=== PATIENT | female | born 1965 | race Caucasian/White ===

== ENCOUNTER → 2017-05-28 | Outpatient (CLI) | payer OTHER ==
--- NOTE | 2017-05-28 11:48 | P.CNPUL ---
History of Present Illness Consult date: 05/28/17 Reason for consult: obstructive sleep apnea History of present illness: 51-year-old female patient coming in for symptoms of excessive hypersomnia and sleepiness. This patient has been fatigued for many years in the same time she has been sleepy. She has been told to snore loudly and at times she has been told to quit breathing. She goes to bed typically at around midnight and she wakes up around 6:00 in the morning. Despite spending 6 hours in bed, she feels that she has slept only 3-4 hours. She wakes up tired and not refreshed. Has chronic excessive daytime hypersomnia and sleepiness. Does not take any naps during the day. She sleeps he was set was jose guadalupe position. She has gained around 10 pounds over the past 1 year. Does not fall asleep while driving. Has never been involved in motor vehicle accidents. No restlessness in lower extremities. No insomnia. She has mild degree of chronic depression for which she has been on Zoloft. Current Millersview score is 9. Review of Systems Full review of system was done and the positive findings were mentioned above in history of present illness. No nightmares, no restlessness in lower extremity, no sleepwalking or sleep talking, no parasomnias. Past Medical History Additional Past Medical History / Comment(s): Hypertension, hyperlipidemia, depression Additional Past Surgical History / Comment(s): eye Surgery Past Psychological History: Depression Smoking Status: Never smoker Past Alcohol Use History: None Reported Past Drug Use History: None Reported - Past Family History Mother Family Medical History: Sleep Apnea/CPAP/BIPAP Medications and Allergies Home Medications and Allergies Comment(s): Hydrochlorothiazide 25 mg by mouth daily, benazepril 40 mg by mouth daily, Lipitor 10 mg by mouth daily, Zoloft 50 mg by mouth daily. Physical Exam Vitals: BP is 137/74, pulse of 66, respiration of 18, temperature of 98.0, saturation 96 % on room air, weight is 184 pounds, height is 64 inches, 16-1/4, BMI 31.3, Millersview scores at 9 Head exam was generally normal. There was no scleral icterus or corneal arcus. Mucous membranes were moist.Neck is supple and the patient has a slight overbite with a Mallampati class IV. No goiter or neck masses.Lungs were clear to auscultation and percussion, and with normal diaphragmatic excursion. No wheezes or rales were noted. Cardiac exam revealed the PMI to be normally situated and sized. The rhythm was regular and no extrasystoles were noted during several minutes of auscultation. The first and second heart sounds were normal and physiologic splitting of the second heart sound was noted. There were no murmurs, rubs, clicks, or gallops.Abdominal exam revealed normal bowel sounds. The abdomen was soft, non-tender, and without masses, organomegaly, or appreciable enlargement of the abdominal aorta.Examination of the extremities revealed easily palpable radial, femoral and pedal pulses. There was no cyanosis , clubbing or edema. Assessment and Plan Plan: Assessment 1 obstructive sleep apnea, clinically suspected. The patient has loud snoring and witnessed apneas and she suffers from chronic hypersomnia and fatigue and sleepiness. Her Millersview score is 9. 2 hypertension 3 hyperlipidemia 4 depression Plan Encourage weight loss. I recommended CPAP she measures. Proceed with a screening polysomnogram looking for obstructive sleep apnea. We'll make further recommendations based on the results of the sleep study.
== END ==
LOC: SLEEP 10:58
PROVIDERS: ATTEND Internal Medicine Critical Care Medicine
DX: G47.10 Hypersomnia, unspecified (principal); R53.83 Other fatigue; E78.5 Hyperlipidemia, unspecified; F32.9 Major depressive disorder, single episode, unspecified; I10 Essential (primary) hypertension; Z79.899 Other long term (current) drug therapy

== ENCOUNTER → 2017-08-20 | Outpatient (CLI) | payer OTHER ==
--- NOTE | 2017-08-20 13:31 | PN ---
PROGRESS NOTE Bonnie is 51 and she is seeing me in follow up to discuss the results of the sleep study. Note that the patient was initially referred to me for excessive fatigue and sleepiness of many years duration. She also reported some loud snoring and she apparently was quitting breathing at night and her Kingston score was at 9. The patient has depression and this is of mild severity and she is on Zoloft and she has also hypertension hyperlipidemia. The sleep study was completed on 07/07/2017. The patient showed a delayed sleep onset and poor sleep efficiency was calculated to be around 57%. She has frequent nocturnal arousals. Her sleep was quite fragmented. In addition, the patient was found to have mild REM specific obstructive sleep apnea with an AHI of 8. No significant periodic limb movements and clinically she does not have any restless legs syndrome. On today's evaluation, the patient is here to discuss the results. She tells me that her sleep quality has been essentially the same. Contrary to the sleep study findings, she is able to initiate sleep without any major difficulties; however, her main problem continues to be frequent nocturnal arousals. She has a stable weight. She has some degree of anxiety without depression and she is on Zoloft. She has poor sleep hygiene and she is napping during the day and she typically takes 1 or 2 naps depending on her level of fatigue and sleepiness. Temperature 97.9, pulse is 66, respirations 16, saturation 97% on room air, BP is 142/88, weight is 184, BMI 31.5 and height is 5 feet 4 inches. GENERAL APPEARANCE: Calm, comfortable. Head is atraumatic, normocephalic. Neck is supple. There is no JVD. There is no goiter or neck masses. LUNGS: Clear to auscultation. Heart sounds regular rate and rhythm. Normal S1, S2. No S3 or S4. No murmurs. Abdomen is soft, nontender. No organomegaly. EXTREMITIES: No edema. No cyanosis or clubbing. NEUROLOGICALLY: Alert and oriented x3. There is no focal neurological deficits. PSYCHIATRIC: active depression, some degree of anxiety. SKIN: Negative for cellulitis, ulceration or wounds. IMPRESSION: 1. Chronic fatigue with some degree of sleepiness, Kingston score of 9. 2. Mild obstructive sleep apnea, AHI of 8.3, REM specific. 3. Poor sleep efficiency at 57%. 4. Abnormality with sleep architecture with overrepresentation of stage III sleep. 5. Mild nocturnal oxygen desaturation secondary to above. 6. Poor sleep hygiene. 7. Chronic depression. 8. Hypertension. 9. Hyperlipidemia. PLAN: 1. Discussed the results. 2. Will need to implement good sleep hygiene. The patient needs to eliminate all naps during the day and try to consolidate her sleep hours mainly at nighttime. She will try to avoid all caffeinated beverages, especially late in the afternoon or in the early evening hours. 3. Exercise late in the afternoon would help. We discussed various other factors related to her sleep hygiene and she is willing to implement all those changes. She will be encouraged to lose weight knowing that some degree of weight loss would help her with her REM specific obstructive sleep apnea. We decided not to proceed with CPAP therapy yet. Continue Zoloft and consider the addition of an anxiolytic too if needed. The patient will see me back in a year's time. The decision for now was not to treat this patient with CPAP therapy. MMBRITTNY / EVERTONN: [id number] /
== END ==
LOC: SLEEP 10:57
PROVIDERS: ATTEND Internal Medicine Critical Care Medicine
DX: G47.33 Obstructive sleep apnea (adult) (pediatric) (principal); R53.82 Chronic fatigue, unspecified; F32.9 Major depressive disorder, single episode, unspecified; I10 Essential (primary) hypertension; E78.5 Hyperlipidemia, unspecified

== ENCOUNTER → 2017-08-23 | Outpatient (CLI) | payer OTHER ==
--- NOTE | 2017-08-26 14:25 | MM ---
Reason for exam: screening (asymptomatic). Last mammogram was performed 3 years and 7 months ago. History: Family history of breast cancer in mother at age 67. Physical Findings: A clinical breast exam by your physician is recommended on an annual basis and results should be correlated with mammographic findings. MG 3D Screening Mammo W/Cad Bilateral CC and MLO view(s) were taken. Prior study comparison: January 13, 2014, bilateral digital screening mammo w/CAD. December 20, 2011, bilateral digital screening mammo w/CAD. There are scattered fibroglandular densities. Finding: There are typically benign regional, linear calcifications in the outer quadrant of the right breast. There is a chronic nodularity in the right breast. There is no discrete abnormality. ASSESSMENT: Benign, BI-RAD 2 RECOMMENDATION: Routine screening mammogram of both breasts in 1 year.
== END ==
LOC: RADMAMWWP 10:11
PROVIDERS: ATTEND Family Medicine
DX: Z12.31 Encounter for screening mammogram for malignant neoplasm of breast (principal)
CPT/HCPCS: 77063; G0202

== ENCOUNTER → 2019-07-08 | Outpatient (CLI) | payer OTHER ==
--- NOTE | 2019-07-09 14:45 | MM ---
Reason for exam: screening (asymptomatic). Last mammogram was performed 1 year and 10 months ago. History: Family history of breast cancer in mother at age 67. Physical Findings: A clinical breast exam by your physician is recommended on an annual basis and results should be correlated with mammographic findings. MG 3D Screening Mammo W/Cad Bilateral CC and MLO view(s) were taken. Prior study comparison: August 23, 2017, bilateral MG 3d screening mammo w/cad. January 13, 2014, bilateral digital screening mammo w/CAD. The breast tissue is heterogeneously dense. This may lower the sensitivity of mammography. No suspicious abnormality. Stable oval left middle depth asymmetry. No significant changes when compared with prior studies. ASSESSMENT: Benign, BI-RAD 2 RECOMMENDATION: Routine screening mammogram of both breasts in 1 year.
== END | disposition home or self-care (01) ==
LOC: RADMAMWWP 08:16
PROVIDERS: ATTEND Family Medicine
DX: Z12.31 Encounter for screening mammogram for malignant neoplasm of breast (principal)
CPT/HCPCS: 77063; 77067

== ENCOUNTER → 2019-10-27 | Outpatient (CLI) | payer OTHER ==
--- NOTE | 2019-10-27 14:01 | XR ---
EXAMINATION TYPE: XR chest 2V DATE OF EXAM: 10/27/2019 COMPARISON: NONE HISTORY: Chest pain. TECHNIQUE: Frontal and lateral views of the chest are obtained. FINDINGS: There is no focal air space opacity, pleural effusion, or pneumothorax seen. The cardiac silhouette size is within normal limits. The osseous structures are intact. IMPRESSION: No acute cardiopulmonary process.
== END | disposition home or self-care (01) ==
LOC: LABWHC1 13:36
PROVIDERS: ATTEND Family Medicine
DX: R07.9 Chest pain, unspecified (principal)
CPT/HCPCS: 71046

== ENCOUNTER 2020-11-25 14:52 | Emergency (ER) | payer OTHER ==
[2020-11-25 15:01] VITALS: TEMP 97.4
[2020-11-25] MEDS ORDERED: SODIUM CHLORIDE 0.9% 1,000 ML IV STA (15:47)
[2020-11-25] MEDS ORDERED: ONDANSETRON 4 MG/2 ML VIAL IVP STA (15:50)
--- NOTE | 2020-11-25 15:51 | ED ---
Dizziness HPI - General Chief Complaint: Dizziness Stated Complaint: Dizzines,Vomiting Time Seen by Provider: 11/25/20 15:37 Source: patient, RN notes reviewed Mode of arrival: wheelchair Limitations: no limitations - History of Present Illness Initial Comments: Patient is a 55-year-old female that presents to emergency department complaining of dizziness with nausea and vomiting. She only drinks 24 ounces water per day. She noted that for the last 2 half hour she became nauseous and lightheaded and dizzy. She denied any trauma or injury. She denied any history of vertigo bleeding or any other intracranial issues. She denied any pain. She was in no apparent discomfort while sitting in bed during exam and interview. She denied any chest pain shortness of breath headache diarrhea constipation fever fatigue chills weakness. - Related Data Home Medications Medication Instructions Recorded Confirmed Atorvastatin Calcium [Lipitor] 20 mg PO DAILY 11/25/20 11/25/20 Benazepril HCl 40 mg PO DAILY 11/25/20 11/25/20 Meloxicam 15 mg PO DAILY PRN 11/25/20 11/25/20 hydroCHLOROthiazide 25 mg PO DAILY 11/25/20 11/25/20 Previous Rx's Medication Instructions Recorded Scopolamine [Scopolamine 1 MG/72 1 patch TRANSDERM Q72H 9 Days #3 11/25/20 HR patch] patch Allergies Allergy/AdvReac Type Severity Reaction Status Date / Time No Known Allergies Allergy Verified 11/25/20 17:06 Review of Systems ROS Statement: Those systems with pertinent positive or pertinent negative responses have been documented in the HPI. ROS Other: All systems not noted in ROS Statement are negative. Past Medical History Past Medical History: Hyperlipidemia, Hypertension Additional Past Medical History / Comment(s): depression History of Any Multi-Drug Resistant Organisms: None Reported Additional Past Surgical History / Comment(s): eye Surgery Past Psychological History: Depression Smoking Status: Never smoker Past Alcohol Use History: None Reported Past Drug Use History: None Reported - Past Family History Mother Family Medical History: Sleep Apnea/CPAP/BIPAP General Exam Limitations: no limitations General appearance: alert, in no apparent distress, obese Head exam: Present: atraumatic, normocephalic, normal inspection Eye exam: Present: normal appearance, PERRL, EOMI. Absent: scleral icterus, conjunctival injection, periorbital swelling ENT exam: Present: normal exam, mucous membranes moist Neck exam: Present: normal inspection. Absent: tenderness, meningismus, lymphadenopathy Respiratory exam: Present: normal lung sounds bilaterally. Absent: respiratory distress, wheezes, rales, rhonchi, stridor Cardiovascular Exam: Present: regular rate, normal rhythm, normal heart sounds. Absent: systolic murmur, diastolic murmur, rubs, gallop, clicks GI/Abdominal exam: Present: soft, normal bowel sounds. Absent: distended, tenderness, guarding, rebound, rigid Extremities exam: Present: normal inspection, full ROM, normal capillary refill. Absent: tenderness, pedal edema, joint swelling, calf tenderness Neurological exam: Present: alert, oriented X3, CN II-XII intact Expanded Patient oriented to: Present: person, place, time Speech: Present: fluid speech Cranial nerves: EOM's Intact: Normal, Gag Reflex: Normal, Facial Sensation: Normal Cerebellar function: Finger to Nose: Normal, Heel to Miller: Normal Upper motor neuron: Babinski Sign: Normal Sensory exam: Upper Extremity Light Touch: Normal, Lower Extremity Light Touch: Normal Motor strength exam: RUE: 5, LUE: 5, RLE: 5, LLE: 5 Eye Response: (4) open spontaneously Motor Response: (6) obeys commands Verbal Response: (5) oriented Psychiatric exam: Present: normal affect, normal mood Skin exam: Present: warm, dry, intact, normal color. Absent: rash Course Vital Signs 11/25/20 14:58 Temperature 97.4 F L Pulse Rate 77 Respiratory 20 Rate Blood Pressure 146/84 O2 Sat by Pulse 100 Oximetry - Reevaluation(s) Reevaluation #1: 11/25/20 17:39 Patient stated that she was feeling much better the dizziness had subsided to a tolerable level. She was able to get a walk around the room with no issues. Stated that she felt like she was getting up to go home. EKG Findings - EKG Comments: EKG Findings:: Ventricular rate 70 bpm, NY interval 170 ms, QRS duration 80, Q T/QTc 4 and 14/1 for sinusitis, PareT axes 52/73/63. Normal sinus rhythm, normal ECG. Medical Decision Making - Medical Decision Making 55-year-old female complains dizziness nausea vomiting. Labs, 1 L normal saline, EKG, chest x-ray, Zofran ordered. Labs unremarkable, chest unremarkable, CT of head unremarkable Patient still nauseous, 10 mg of Reglan ordered. Case discussed with Dr. Beltrán, it was decided the patient could discharge home w [facility] follow-up to primary care - Lab Data Result diagrams: 11/25/20 15:51 11/25/20 15:51 Lab Results 11/25/20 11/25/20 Range/Units 15:51 15:51 WBC 16.4 H (3.8-10.6) k/uL RBC 4.98 (3.80-5.40) m/uL Hgb 15.0 (11.4-16.0) gm/dL Hct 42.7 (34.0-46.0) % MCV 85.7 (80.0-100.0) fL MCH 30.1 (25.0-35.0) pg MCHC 35.2 (31.0-37.0) g/dL RDW 13.1 (11.5-15.5) % Plt Count 292 (150-450) k/uL MPV 7.3 Neutrophils % 83 % Lymphocytes % 12 % Monocytes % 3 % Eosinophils % 1 % Basophils % 0 % Neutrophils # 13.6 H (1.3-7.7) k/uL Lymphocytes # 2.0 (1.0-4.8) k/uL Monocytes # 0.5 (0-1.0) k/uL Eosinophils # 0.2 (0-0.7) k/uL Basophils # 0.0 (0-0.2) k/uL Sodium 139 (137-145) mmol/L Potassium 4.3 (3.5-5.1) mmol/L Chloride 104 (98-107) mmol/L Carbon Dioxide 25 (22-30) mmol/L Anion Gap 10 mmol/L BUN 20 H (7-17) mg/dL Creatinine 0.90 (0.52-1.04) mg/dL Est GFR (CKD-EPI)AfAm 83 (>60 ml/min/1.73 sqM) Est GFR (CKD-EPI)NonAf 72 (>60 ml/min/1.73 sqM) Glucose 132 H (74-99) mg/dL Calcium 10.5 H (8.4-10.2) mg/dL - EKG Data -: EKG Interpreted by Me EKG shows normal: sinus rhythm Rate: normal EKG Comments: Ventricular rate 70 bpm, NY interval 170 ms, QRS duration 80, QT/QTc 4 and 14/1 for sinusitis, PareT axes 52/73/63. Normal sinus rhythm, normal ECG. - Radiology Data Radiology results: report reviewed, image reviewed Negative unenhanced head computed tomography scan. Chest x-ray: No acute process. Disposition Clinical Impression: Vertigo, Dehydration, Nausea & vomiting Disposition: HOME SELF-CARE Condition: Stable Instructions (If sedation given, give patient instructions): Dizziness (ED) Additional Instructions: Please return to the Emergency Department if symptoms worsen or any other concerns. Use scopolamine patches as prescribed. Follow-up with primary care 1-2 days. Increase oral fluid intake to at least 90-100 ounces per day to ensure optimal hydration Prescriptions: Scopolamine [Scopolamine 1 MG/72 HR patch] 1 patch TRANSDERM Q72H 9 Days #3 patch Is patient prescribed a controlled substance at d/c from ED?: No Referrals: Opal Oswald MD [Primary Care Provider] - 1-2 days Time of Disposition: 17:43
[2020-11-25 16:05] LABS: Basophils % (A) 0 %; Eosinophils # (A) 0.2 k/uL (0-0.7); Eosinophils % (A) 1 %; HCT 42.7 % (34.0-46.0); Lymphocytes % (A) 12 %; MCH 30.1 pg (25.0-35.0); MCHC 35.2 g/dL (31.0-37.0); MCV 85.7 fL (80.0-100.0); Mean Platelet Volume 7.3; Monocytes # (A) 0.5 k/uL (0-1.0); Monocytes % (A) 3 %; Neutrophils # (A) 13.6 k/uL (1.3-7.7); Neutrophils % (A) 83 %; Platelet Count 292 k/uL (150-450); RBC 4.98 m/uL (3.80-5.40); RDW 13.1 % (11.5-15.5); WBC 16.4 k/uL (3.8-10.6)
[2020-11-25 16:17] LABS: Calcium 10.5 mg/dL (8.4-10.2); Potassium 4.3 mmol/L (3.5-5.1)
--- NOTE | 2020-11-25 16:24 | XR ---
EXAMINATION TYPE: XR chest 1V portable DATE OF EXAM: 11/25/2020 COMPARISON: Prior chest x-ray October 27, 2019. HISTORY: Dizziness for 2 to 4 hours with weakness. TECHNIQUE: Single AP portable frontal upright view of the chest is obtained. FINDINGS: Diminished inspiration on current study. Slightly elevated right hemidiaphragm. There is mi ld chronic parenchymal change without suspicious focal air space opacity, pleural effusion, or pneumo thorax seen. The cardiac silhouette size remains within normal limits. The osseous structures are intact. IMPRESSION: No acute process.
[2020-11-25] MEDS ORDERED: METOCLOPRAMIDE 5 MG/ML 2 ML VIAL IVP STA (17:07)
--- NOTE | 2020-11-25 17:09 | CT ---
EXAMINATION TYPE: CT brain wo con DATE OF EXAM: 11/25/2020 COMPARISON: None HISTORY: dizziness CT DLP: 1098.4 mGycm Automated exposure control for dose reduction was used. Images obtained of the brain without contrast. Ventricles have normal size. There is no mass effect nor midline shift. There is no sign of intracran ial hemorrhage. The calvarium is intact. There is no evidence of cerebral edema. IMPRESSION: Negative unenhanced head CT scan.
[2020-11-25 17:43] LABS: Appearance,Urine Cloudy (Clear); Bacteria,Urine Rare /hpf; Bilirubin,Urine Negative (Negative); Blood,Urine Small (Negative); Color,Urine Yellow; Glucose,Urine (UA) Negative (Negative); Hyaline Casts,Urine 1 /lpf (0-2); Ketones,Urine Trace (Negative); Leukocyte Esterase,Urine Large (Negative); Mucus,Urine Moderate /hpf; Nitrite,Urine Negative (Negative); PH, Urine 5.5 (5.0-8.0); Protein,Urine 1+ (Negative); RBC,Urine 10 /hpf (0-5); Specific Gravity,Urine 1.028 (1.001-1.035); Squamous Epithelial Cell,Urine 6 /hpf (0-4); Urobilinogen,Urine <2.0 mg/dL (<2.0); WBC,Urine 16 /hpf (0-5)
[2020-11-25 18:03] VITALS: RESP 16
[2020-11-25] MEDS ORDERED: ONDANSETRON 4 MG ODT STARTER PACK 2 TAB BTL PO STA (18:40)
[2020-11-25 18:49] VITALS: BP 136/76; PULSE 87
== END 2020-11-25 18:47 | disposition home or self-care (01) ==
LOC: EC 14:52
DX: R42 Dizziness and giddiness (principal); E86.0 Dehydration; R11.2 Nausea with vomiting, unspecified; I10 Essential (primary) hypertension; E78.5 Hyperlipidemia, unspecified; F32.9 Major depressive disorder, single episode, unspecified; Z79.1 Long term (current) use of non-steroidal anti-inflammatories (NSAID); Z79.899 Other long term (current) drug therapy; Z84.89 Family history of other specified conditions
CPT/HCPCS: 36415; 93005; 80048; 85025; 81001; 87086; 71045; 70450; J2765; J2405; S0119; 96361; 96374; 96375; 99285

== ENCOUNTER → 2020-12-15 | Outpatient (CLI) | payer OTHER | END | disposition home or self-care (01) | LOC: LABWHC1 11:23 | PROVIDERS: ATTEND Family Medicine | DX: E83.52 Hypercalcemia (principal) | CPT/HCPCS: 36415; 82330; 83970 ==

== ENCOUNTER → 2021-03-24 | Outpatient (CLI) | payer OTHER ==
--- NOTE | 2021-03-25 06:49 | MR ---
EXAMINATION TYPE: MR brain and iac wo/w con DATE OF EXAM: 03/24/2021 COMPARISON: None HISTORY: Dizziness and giddiness, vertigo, ataxia CONTRAST: Standard multiplanar, multisequence MRI departmental protocol utilizing 8.5 mL intravenous Gadavist g adolinium contrast. Ventricles have normal size. There is no mass effect nor midline shift. There is no sign of intracran ial hemorrhage. Diffusion images show no evidence of an acute infarct. The brainstem is intact. There are some scattered variable sized foci of increased signal at the laureano -white matter junction of both cerebral hemispheres. Total number is approximately 20 and these measu re up to 8 mm. Most of these lesions are less than 4 mm. The brainstem is intact. Corpus callosum is intact. Sella turcica appears normal. Images through the posterior fossa show normal internal auditory canals. The acoustic nerve and vesti bular nerve appear normal. There is no evidence of cerebellopontine angle mass. Cerebellum is intact. The contrast images show no pathologic enhancement. There is normal enhancement of the venous sinuse s. The orbits appear normal. IMPRESSION: No posterior fossa abnormality. Scattered white matter high signal foci could relate to microvascular ischemia or demyelinating disea se. No evidence of cortical infarct.
== END | disposition home or self-care (01) ==
LOC: RADMRIMAIN 08:22
PROVIDERS: ATTEND Otolaryngology
DX: H93.3X9 Disorders of unspecified acoustic nerve (principal); R42 Dizziness and giddiness
CPT/HCPCS: 70553; A9585

== ENCOUNTER → 2021-05-25 | Outpatient (CLI) | payer OTHER ==
[2021-05-25 20:49] LABS: HCT 38.5 % (37.2-46.3); HGB 12.9 g/dL (12.0-15.0); MCH 28.8 pg (27.0-32.0); MCHC 33.5 g/dL (32.0-37.0); MCV 85.9 fL (80.0-97.0); Mean Platelet Volume 10.6 fL (9.5-12.2); Platelet Count 269 X 10*3/uL (140-440); RBC 4.48 X 10*6/uL (4.10-5.20); RDW 13.2 % (11.5-14.5)
[2021-05-25 22:00] LABS: Erythrocyte Sedimentation Rate 15 mm/Hr (0-30)
[2021-05-26 13:34] LABS: APTT 42 Sec(s) (<43); Dilute Russell Viper Venom 39 Sec(s) (<44)
[2021-05-26 20:31] LABS: C Reactive Protein <0.4 mg/dL (0.0-0.8)
== END | disposition home or self-care (01) ==
LOC: LABWHC1 10:31
PROVIDERS: ATTEND Psychiatry & Neurology Neurology
DX: U07.1 COVID-19 (principal); F81.9 Developmental disorder of scholastic skills, unspecified; D68.59 Other primary thrombophilia
CPT/HCPCS: 36415; 84439; 84443; 85027; 85613; 85652; 85730; 86038; 86140; 86235; 86618; 86769; 86780

== ENCOUNTER → 2021-08-02 | Outpatient (CLI) | payer OTHER ==
--- NOTE | 2021-08-02 16:58 | BD ---
EXAMINATION TYPE: Axial Bone Density DATE OF EXAM: 08/02/2021 COMPARISON: NONE CLINICAL HISTORY: Postmenopausal screening Height: 64 Weight: 184.7 FRAX RISK QUESTIONS: Alcohol (3 or more units per day): no Family History (Parent hip fracture): yes Glucocorticoids (More than 3mos): no (Ex: prednisone, prednisolone, methylprednisolone, dexamethasone, and hydrocortisone). History of Fracture in Adulthood: no Secondary Osteoporosis: 1. Type 1 Diabetes: no 2. Hyperthyroidism: no 3. Menopause before 45: no 4. Malnutrition: no 5. Chronic liver disease: no Rheumatoid Arthritis: no Current Tobacco Use: no RISK FACTORS HISTORY OF: Surgery to Spine/Hip(right/left)/Wrist (right/left): no Family History of Osteoporosis: no Active: yes Diet low in dairy products/other sources of calcium: yes Postmenopausal woman: yes Lost more than 2 inches in height since high school: no MEDICATIONS: blood pressure, cholesterol Additional History: EXAM MEASUREMENTS: Bone mineral densitometry was performed using the [place] [employer]. Bone mineral density as measured about the Lumbar spine is: ----- L1-L4(G/cm2): 1.128 T Score Values are as follows: ----- L2: -0.2 ----- L3: -0.4 ----- L4: -0.7 ----- L1-L4: -0.4 Bone mineral density : baseline Bone mineral density about the R hip (g/cm2): 0.861 Bone mineral density about the L hip (g/cm2): 0.861 T Score values are as follows: -----R Neck: -1.3 -----L Neck: -1.3 -----R Total: -0.6 -----L Total: -0.2 Bone mineral density : baseline IMPRESSION: Osteopenia (T Score between -2.5 and -1). There is slightly increased risk of fracture and the patient may be considered for treatment. Re-Screen 2-5 years. NOTE: T-SCORE=SD OF THE YOUNG ADULT MEAN.
--- NOTE | 2021-08-03 11:51 | MM ---
Reason for exam: screening (asymptomatic). Last mammogram was performed 2 years and 1 month ago. History: Family history of breast cancer in aunt at age 65 and breast cancer in mother at age 67. Physical Findings: A clinical breast exam by your physician is recommended on an annual basis and results should be correlated with mammographic findings. MG 3D Screening Mammo W/Cad Bilateral CC and MLO view(s) were taken. Prior study comparison: July 08, 2019, bilateral MG 3d screening mammo w/cad. August 23, 2017, bilateral MG 3d screening mammo w/cad. There are scattered fibroglandular densities. There is chronic nodularity in the upper outer quadrant and right axilla. Asymmetric breast tissue left anterior outer breast, stable. There is no discrete abnormality. ASSESSMENT: Negative, BI-RAD 1 RECOMMENDATION: Routine screening mammogram of both breasts in 1 year.
== END | disposition home or self-care (01) ==
LOC: RADMAMWWP 10:14
PROVIDERS: ATTEND Family Medicine
DX: Z12.31 Encounter for screening mammogram for malignant neoplasm of breast (principal); Z13.820 Encounter for screening for osteoporosis; M85.89 Other specified disorders of bone density and structure, multiple sites; Z78.0 Asymptomatic menopausal state
CPT/HCPCS: 77063; 77067; 77080

== ENCOUNTER → 2021-08-30 | Outpatient (CLI) | payer OTHER | END | disposition home or self-care (01) | LOC: LABWHC1 13:00 | PROVIDERS: ATTEND Psychiatry & Neurology Neurology | DX: G95.0 Syringomyelia and syringobulbia (principal) | CPT/HCPCS: 36415; 86255 ==

== ENCOUNTER → 2022-10-12 | Outpatient (CLI) | payer OTHER ==
--- NOTE | 2022-10-12 12:37 | MR ---
EXAMINATION TYPE: MR brain wo/w con DATE OF EXAM: 10/12/2022 COMPARISON: MR brain 03/24/21, CT brain 11/25/2020. HISTORY: MULTIPLE SCLEROSIS TECHNIQUE: Multiplanar, multisequence images of the brain and brainstem is performed without and with IV contras t, utilizing 8 mL intravenous Gadavist . FINDINGS: Diffusion weighted images demonstrate no evidence of a recent infarct or other diffusion ab normality. There is no extra-axial fluid collection. Similar scattered various sized foci of increas ed T2/FLAIR signal periventricular and subcortical white matter of both cerebral hemispheres. Similar total number of approximately 20 lesions with largest measuring up to 9 mm in the left frontal lobe (series 602, image 19). Most of these lesions are again less than 4 mm. None of these lesions demonst rate contrast enhancement. The ventricular system and cisternal spaces are normal in size and appeara nce. The brain volume is age appropriate. Midline structures demonstrate normal morphology. The craniocervical junction appears within normal limits. Post contrast images demonstrate no abnormal enhancement. The dural venous sinuses appear pa tent. The visualized sinuses are clear and the globes are intact. IMPRESSION: Overall similar examination with multiple scattered white matter T2/FLAIR high intensity foci corresponding to reported multiple sclerosis. No contrast enhancement to suggest active demyelin ation.
== END | disposition home or self-care (01) ==
LOC: RADMRIMAIN 10:36
PROVIDERS: ATTEND Psychiatry & Neurology Neurology
DX: G35 Multiple sclerosis (principal); G93.89 Other specified disorders of brain
CPT/HCPCS: 70553; A9585

== ENCOUNTER → 2022-12-21 | Outpatient (CLI) | payer OTHER ==
--- NOTE | 2022-12-24 19:20 | MM ---
Reason for Exam: Screening (asymptomatic). Last mammogram was performed 1 year(s) and 4 month(s) ago. Patient History: Menarche at age 11. First Full-Term at age 27. Postmenopausal. Maternal aunt had breast cancer, age 65. Mother had breast cancer, age 67. Risk Values: Bria 5 year model risk: 2.7%. NCI Lifetime model risk: 14.2%. Prior Study Comparison: 08/23/2017 Bilateral Screening Mammogram, [facility]. 07/08/2019 Bilateral Screening Mammogram, [facility]. 08/02/2021 Bilateral Screening Mammogram, [facility]. Tissue Density: There are scattered fibroglandular densities. Findings: Analyzed By CAD. Bilateral unchanged, chronic nodularity. There is no suspicious group of microcalcifications or new suspicious mass in either breast. Overall Assessment: Benign, BI-RAD 2 Management: Screening Mammogram of both breasts in 1 year. 1. Patient should continue monthly self breast exams. 2. A clinical breast exam by your physician is recommended on an annual basis. 3. This exam should not preclude additional follow-up of suspicious palpable abnormalities. Electronically signed and approved by: Isael Krause M.D. Radiologist
== END | disposition home or self-care (01) ==
LOC: RADMAMWWP 13:19
PROVIDERS: ATTEND Family Medicine
DX: Z12.31 Encounter for screening mammogram for malignant neoplasm of breast (principal); Z78.0 Asymptomatic menopausal state; Z80.3 Family history of malignant neoplasm of breast
CPT/HCPCS: 77063; 77067

== ENCOUNTER → 2023-12-10 | Outpatient (CLI) | payer OTHER | LOC: CPPFTMAIN 11:31 | PROVIDERS: ATTEND Family Medicine | DX: R06.02 Shortness of breath (principal); I10 Essential (primary) hypertension; Z79.899 Other long term (current) drug therapy | CPT/HCPCS: 94060; 94726; 94729 ==

== ENCOUNTER → 2024-01-10 | Outpatient (CLI) | payer OTHER ==
--- NOTE | 2024-01-10 16:22 | BD ---
EXAMINATION TYPE: Axial Bone Density DATE OF EXAM: 01/10/2024 CLINICAL HISTORY: 58 years old Female. ICD-10 CODE: M85.88 OT DISRD OF BONE DENSITY Height: 63 in Weight: 177 lbs FRAX RISK QUESTIONS: Family History (Parent hip fracture): yes father RISK FACTORS EXAM MEASUREMENTS: Bone mineral densitometry was performed using the [employer] System. Bone mineral density as measured about the Lumbar spine is: ----- L1-L4(G/cm2): 1.101 T Score Values are as follows: ----- L1: -1.0 ----- L2: -1.0 ----- L3: -0.3 ----- L4: -0.5 ----- L1-L4: -0.7 Z Score Values are as follows: ----- L1: -0.3 ----- L2: -0.3 ----- L3: 0.4 ----- L4: 0.1 ----- L1-L4: 0.0 Bone mineral density has: Decreased -2.4% since study of: 08/02/2021 Bone mineral density about the R hip (g/cm2): 0.907 Bone mineral density about the L hip (g/cm2): 0.907 T Score values are as follows: -----R Neck: -1.5 -----L Neck: -1.7 -----R Total: -0.8 -----L Total: -0.8 Z Score values are as follows: -----R Neck: -0.5 -----L Neck: -0.7 -----R Total: -0.2 -----L Total: -0.2 Bone mineral density has: Decreased -5.1% since study of: 08/02/2021 FRAX%s: The graph provided illustrates a 16.0% chance for a major osteoporotic fx and a 0.8% chance f or the hips probability for fx in 10 years time. IMPRESSION: Normal (Values between +1 and -1 indicate normal bone mass). Consider repeating this study in 5 year s or sooner if there is some new clinical indication. NOTE: T-SCORE=SD OF THE YOUNG ADULT MEAN.
--- NOTE | 2024-01-13 09:35 | MM ---
Reason for Exam: Screening (asymptomatic). Last mammogram was performed 1 year(s) and 1 month(s) ago. Patient History: Menarche at age 11. First Full-Term at age 27. Postmenopausal. Maternal aunt had breast cancer, age 65. Mother had breast cancer, age 67. Risk Values: Bria 5 year model risk: 2.8%. NCI Lifetime model risk: 13.9%. Prior Study Comparison: 07/08/2019 Bilateral Screening Mammogram, [facility]. 08/02/2021 Bilateral Screening Mammogram, [facility]. 12/21/2022 Bilateral MG 3D screening mammo w/cad, [facility]. Tissue Density: The breasts are heterogeneously dense, which may obscure small masses. Findings: Analyzed By CAD. There is no suspicious group of microcalcifications or new suspicious mass in either breast. Overall Assessment: Negative, BI-RAD 1 Management: Screening Mammogram of both breasts in 1 year. . Patient should continue monthly self-breast exams. A clinical breast exam by your physician is recommended on an annual basis. This exam should not preclude additional follow-up of suspicious palpable abnormalities. Note on Bria scores and lifetime risk: 1. A Bria score greater than 3% is considered moderate risk. If this is the case, consider specialist referral to assess eligibility for a risk reducing agent. 2. If overall lifetime risk for the development of breast cancer is 20% or higher, the patient may qualify for future screening with alternating mammogram and breast MRI. Electronically signed and approved by: Jean-Claude Mendoza M.D. Radiologis
== END | disposition home or self-care (01) ==
LOC: RADMAMWWP 10:43
PROVIDERS: ATTEND Family Medicine
DX: Z12.31 Encounter for screening mammogram for malignant neoplasm of breast (principal); M85.89 Other specified disorders of bone density and structure, multiple sites; Z78.0 Asymptomatic menopausal state; Z80.3 Family history of malignant neoplasm of breast
CPT/HCPCS: 77063; 77067; 77080

== ENCOUNTER 2024-12-08 08:30 | Day surgery (SDC) | payer OTHER ==
[2024-12-07 08:38] VITALS: BMI 27.8
[2024-12-08] MEDS: IV FLUID CONTINUATION 1,000 ML IV ONE (08:50)
[2024-12-08 09:00] VITALS: TEMP 97.6
[2024-12-08] MEDS: LACTATED RINGERS 1,000 ML IV SCH (09:05)
[2024-12-08] MEDS ORDERED: LIDOCAINE 1% INJ 10MG/ML (20 ML MDV) ONE (09:10)
[2024-12-08] MEDS ORDERED: PROPOFOL 10 MG/ML 20 ML VIAL IV ONE (09:10)
--- NOTE | 2024-12-08 09:16 | P.GSHP ---
History of Present Illness H&P Date: 12/08/24 Chief Complaint: Colon cancer screening 59-year-old female here for colonoscopy. Last colonoscopy 5 years ago. Patient was found to have polyps at that time. No family history of colon cancer. Past Medical History Past Medical History: Hyperlipidemia, Hypertension Additional Past Medical History / Comment(s): hx colon polyps History of Any Multi-Drug Resistant Organisms: None Reported Additional Past Surgical History / Comment(s): corrective muscle eye Surgery,colonoscopy Past Anesthesia/Blood Transfusion Reactions: No Reported Reaction, Motion Sickness Smoking Status: Never smoker - Past Family History Mother Family Medical History: Cancer, Sleep Apnea/CPAP/BIPAP Additional Family Medical History / Comment(s): breast CA Medications and Allergies Home Medications Medication Instructions Recorded Confirmed Type Atorvastatin Calcium [Lipitor] 20 mg PO DAILY 11/25/20 12/08/24 History Benazepril HCl 40 mg PO QAM 11/25/20 12/08/24 History hydroCHLOROthiazide 25 mg PO DAILY 11/25/20 12/08/24 History Allergies Allergy/AdvReac Type Severity Reaction Status Date / Time No Known Allergies Allergy Verified 12/08/24 08:52 Surgical - Exam Vital Signs Temp Pulse Resp BP Pulse Ox 97.6 F 72 16 136/73 95 12/08/24 08:56 12/08/24 08:56 12/08/24 08:56 12/08/24 08:56 12/08/24 08:56 Physical exam: General: Well-developed, well-nourished HEENT: Normocephalic, sclerae nonicteric Abdomen: Nontender, nondistended Extremities: No edema Neuro: Alert and oriented Assessment and Plan (1) Colon cancer screening Narrative/Plan: Will proceed with colonoscopy at this time. Current Visit: Yes Status: Acute Code(s): Z12.11 - ENCOUNTER FOR SCREENING FOR MALIGNANT NEOPLASM OF COLON SNOMED Code(s): 680403413
--- NOTE | 2024-12-08 09:26 | P.PCN ---
Date of Procedure: 12/08/24 Procedure(s) Performed: PREOPERATIVE DIAGNOSIS: Colon cancer screening with history of polyps POSTOPERATIVE DIAGNOSIS: Mild diverticulosis PROCEDURE: Colonoscopy ANESTHESIA: MAC SURGEON: Kevin Oswald M.D. SPECIMENS: None ENDOSCOPIC PROCEDURE: The patient was placed on the endoscopy table in the left decubitus position. The Olympus colonoscope was inserted into the anus and passed under direct visualization to the base of the cecum. The appendiceal orifice was visualized. From that point the scope was slowly withdrawn inspecting all surfaces carefully. There were no neoplastic inflammatory or polypoid lesions throughout the cecum, ascending, transverse, descending, sigmoid and rectum. There was mild left-sided diverticulosis noted. Digital rectal examination was normal. The patient was taken to the recovery room in stable condition per anesthesia guidelines. RECOMMENDATIONS: Resume diet. Repeat colonoscopy 7 years.
[2024-12-08 09:47] VITALS: BP 104/72; PULSE 60; RESP 18
== END 2024-12-08 10:08 | disposition home or self-care (01) ==
LOC: ORWHC2ENDO 08:30
PROVIDERS: ATTEND Surgery
DX: Z12.11 Encounter for screening for malignant neoplasm of colon (principal); K57.30 Diverticulosis of large intestine without perforation or abscess without bleeding; I10 Essential (primary) hypertension; E78.5 Hyperlipidemia, unspecified; Z80.3 Family history of malignant neoplasm of breast; Z86.0100 Personal history of colon polyps, unspecified; Z90.01 Acquired absence of eye; Z79.02 Long term (current) use of antithrombotics/antiplatelets; Z79.899 Other long term (current) drug therapy
CPT/HCPCS: 45378; J2003; J2704